=== PATIENT | male | born 1990 | race Caucasian/White ===

== ENCOUNTER 2024-01-20 06:32 | Emergency (ER) | payer SELFPAY ==
[2024-01-20 06:36] VITALS: BP 142/90
--- NOTE | 2024-01-20 07:32 | ED.GENMED ---
History of Present Illness
General
Chief Complaint: Chest Pain
Source: patient
Exam Limitations: none
Time Seen by Provider: 01/20/24 07:29
Nursing documentation reviewed up to this point in time: agreed with
History of Present Illness
History of Present Illness:
34-year-old male presents today for evaluation of intermittent chest pain. Patient reports he has had intermittent left-sided chest pain over the past 1 to 2 weeks. Episodes are intermittent and last for 5 to 20 minutes at a time. It is worse
with bending and twisting. He did jog last night because he was very anxious and had no symptoms. He does not feel that he gets the symptoms with exertion. He is very anxious about the symptoms and look them up online and is concerned about blood
clot. He has not taken anything for his discomfort.
He has no prior history of DVT PE. He has no cardiac history. He has been fatigued over the past several weeks but recently started a new job and is getting up at 3:50 in the morning.
He does believe his father has high cholesterol and believes his grandfather had a stent in his 50s or 40s. He does not smoke.
Past History
Past History
ED Past Medical History: None
ED Past Surgical History: None
Review of Systems
Review of Systems
Allergies reviewed?: Yes
All Other Systems: ROS reviewed and negative except as documented in HPI and ROS
Constitutional: Reports no symptoms; Denies fever, fatigue or chills
Respiratory: Denies trouble breathing
Cardiac: Reports chest pain
ABD/GI: Reports no symptoms
: Reports no symptoms
Musculoskeletal: Reports no symptoms
Skin: Reports no symptoms
Neurological: Reports no symptoms
Psychiatric: Reports no symptoms
Phy Exam
General Physical Exam
General Presentation: no apparent distress
General age: appears stated age
General Skin: warm and dry
General Habitus: normal
General Mental: alert
General Hydration: appears well hydrated
Cardiovascular Exam
Cardiovascular Exam: regular rate/rhythm, no murmur and normal peripheral pulses
Pulmonary Exam
Pulmonary Exam: lungs clear, no respiratory distress and other (chest non tender )
Neurological Exam
Neurological Exam: alert and oriented x3
Musculoskeletal Exam
Musculoskeletal Exam: full ROM
Skin Exam
Skin Exam: normal color and warm/dry
Psychiatric Exam
Psychiatric Exam: normal mood/affect
Scores
Heart Score for Chest Pain Patients
STEMI patient?: Not applicable
Course
Orders/Labs/Results
Orders:
Orders
01/20/24 06:34
ECG [Electrocardiogram (*1)] Urgent
Reason for Study: Chest Pain
EKG- Treatment ONCE
01/20/24 07:43
Cardiac Monitoring- Treatment ONCE
IV Insert/Care/Rem.- Treatment PRN
01/20/24 07:44
CR Chest - 2 Views Urgent
Comment:
Reason For Exam: cp/sob
01/20/24 07:47
Complete Blood Count/With Diff Urgent
Comprehensive Metabolic Panel Urgent
D-Dimer Urgent
Troponin I Urgent
Abnormal Lab Results
01/20/24
07:47
RBC 4.32 L 10^6/uL
(4.70-6.10)
MCH 32.9 H pg
(27.0-31.0)
Eosinophils % 6.9 H %
(0-6)
BUN 22 H mg/dl
(9-20)
ALT 67 H U/L
(0-50)
01/20/24 07:47
01/20/24 07:47
Vital Signs
Initial and Last Documented VS:
Initial Vital Signs
Temp Pulse Resp BP Pulse Ox
98.1 F 80 24 142/90 98
01/20/24 06:36 01/20/24 06:36 01/20/24 06:36 01/20/24 06:36 01/20/24 06:36
Last Documented Vital Signs
Temp Pulse Resp BP Pulse Ox
98.1 F 69 14 121/81 99
01/20/24 06:36 01/20/24 10:15 01/20/24 10:15 01/20/24 10:02 01/20/24 09:45
MDM/Problems Addressed
Differential Diagnosis Includes:
Not limited to musculoskeletal chest pain less likely PE less likely unstable angina, possible costochondritis,
MDM/Problems Addressed:
No concerning cause of patient's symptoms. Patient has no DVT PE risk factors he is anxious however no acute distress, nontachycardic not tachypneic not hypoxic. Patient's cardiac troponin and D-dimer normal chest x-ray unremarkable. Offered
patient anti-inflammatory for his symptoms however he declines. He reports currently he has no symptoms. He has not been his family doctor in 8 years. Discussed close outpatient follow-up. patient given cardiology for outpatient referral. We
did discuss the possibility of costochondritis recommended anti-inflammatory as needed.
*Radiology
Radiology exam reviewed: radiology read reviewed
*Pulse Oximetry
Patient hypoxic: no
*EKG
Interpreted by ED Provider?: Yes
Interpretation: normal
Heart Rate: 70
Rate: normal
Rhythm: sinus
Ischemia: no ischemia
*Critical Care Note
Total Time (30-74mins, 75-104mins- exclusive of procedures): Not Applicable
ED Attending Note
-
Portions of this chart may have been created with voice recognition software.� Occasional wrong word or��sound alike� substitutions may have occurred due to the inherent limitations of voice recognition software.
Discharge Plan
Departure
Patient Disposition: Home (Routine Discharge)
Date of Disposition: 01/20/24
Time of Disposition: 10:00
Patient with high blood pressure during this ER visit?: Yes
Condition: Fair
Covid-19: Not Applicable
Discharge Problem:
Chest pain
Instructions: Chest Pain PCP Follow Up
Prescriptions:
No Action
sulfamethoxazole-trimethoprim 1 TABLET tablet
1 tab PO BID Qty: 13 0RF
Referrals:
Reggie Wright MD [Family Provider] -
Bronwyn Robison MD [Active] -
Activity Restrictions/Additional Instructions:
As discussed you may take ibuprofen as needed every 8 hours for discomfort. Please follow close with your family doctor in the next of days for reevaluation call today to make an appointment. Also as discussed you were given cardiology for
referral. Return if any worsening of symptoms
Interventions
Interventions:
*Risk Screen - Suicide Last Done: 01/20/24 06:36
*General Assessment Last Done: 01/20/24 07:51
*Neglect/Abuse Screening Last Done: 01/20/24 06:36
*ED COVID-19 Vaccine History Last Done: 01/20/24 07:51
*Nursing Disposition Last Done: 01/20/24 10:52
ED-Psychological Assessment Last Done: 01/20/24 07:51
ED- Cardiac Assessment Last Done: 01/20/24 07:51
Discharge Date and Time
Discharge Date/Time: 01/20/24 10:53
Print Language: ARMENIAN
[2024-01-20 07:50] VITALS: BMI 36.2
[2024-01-20 08:00] VITALS: BP 132/71
[2024-01-20 08:07] LABS: % Basophils 0.5 % (0-2); % Eosinophils 6.9 % (0-6); % Immature Granulocytes 0.3 % (0-0.5); % Lymphocytes 28.2 % (20.5-51.1); % Monocytes 7.6 % (1.7-9.3); % Neutrophils 56.5 % (42.2-75.2); Absolute Eosinophils 0.4 10^3/uL (0-0.7); Absolute Lymphocytes 1.6 10^3/uL (1.2-3.4); Absolute Monocytes 0.4 10^3/uL (0.1-0.6); Absolute Neutrophils 3.3 10^3/uL (1.4-6.5); D-Dimer 0.33 ug/mlFEU (0.00-0.50); Hematocrit 39.7 % (39.0-52.0); Hemoglobin 14.2 g/dL (13.0-18.0); Mean Corp Hgb Conc. 35.8 g/dL (33.0-37.0); Mean Corpuscular Hgb 32.9 pg (27.0-31.0); Mean Corpuscular Volume 91.9 fL (80.0-94.0); Mean Platelet Volume 10.2 fL (7.4-10.4); Nucleated Red Blood Cells % 0 % (-); Platelet Count 151 10^3/uL (130-400); Red Blood Cell Count 4.32 10^6/uL (4.70-6.10); Red Cell Dist. Width 11.7 % (11.5-14.5); White Blood Cell Count 5.8 10^3/uL (4.8-10.8)
[2024-01-20 08:12] LABS: ALT (SGPT) 67 U/L (0-50); AST (SGOT) 41 U/L (17-59); Albumin 4.4 g/dl (3.5-5.0); Alkaline Phosphatase 60 U/L (38-126); Blood Urea Nitrogen 22 mg/dl (9-20); Calcium 9.2 mg/dl (8.4-10.2); Carbon Dioxide 28 mmol/L (22-30); Chloride 105 mmol/L (98-107); Estimated Creatinine Clearance 109 ml/min; Glucose 93 mg/dl (70-99); Potassium 3.9 mmol/L (3.5-5.1); Sodium 142 mmol/L (135-145); Total Bilirubin 0.7 mg/dl (0.2-1.3); Total Protein 6.6 g/dl (6.3-8.2); eGFR > 60.00
[2024-01-20 08:22] LABS: Troponin I < 0.012 ng/ml
[2024-01-20 09:00] VITALS: BP 124/76
[2024-01-20 10:02] VITALS: BP 121/81
== END 2024-01-20 10:53 | disposition home or self-care (01) ==
LOC: EMR 06:32
PROVIDERS: Nurse Practitioner; EMERGENCY PHYSICIAN Emergency Medicine; FAMILY PHYSICIAN Family Medicine
DX: R07.89 Other chest pain (principal)
CPT/HCPCS: 99283; 71046; 80053; 84484; 85025; 85379; 93005